=== PATIENT | female | born 1995 | race Two or more races ===

== ENCOUNTER → 2025-04-21 | Outpatient (CLI) | payer OTHER, SELFPAY ==
--- NOTE | 2025-04-21 14:02 | XR_ITS ---
Examination: Breast ultrasound complete, bilateral Date and time of exam: April 21, 2025 1508 hours INDICATIONS: Bilateral breast lumps and discharge 2 years Technique: Real-time grayscale ultrasonographic imaging bilateral breasts, including all 4 quadrants as well as nipple retroareolar and axillary regions. Findings: Sonographic images right breast No cystic or solid mass Sonographic images left breast Retroareolar hyperechoic mass consistent with lipoma 6 x 7 mm IMPRESSION: BI-RADS Category 2: Benign findings
== END | disposition home or self-care (01) ==
PROVIDERS: PCP Physician Assistant Medical; Referring Provider Physician Assistant Medical; Visit Provider Physician Assistant Medical
DX: N64.52 Nipple discharge (principal)
CPT/HCPCS: 76641